=== PATIENT | male | born 1980 | race Caucasian/White ===

== ENCOUNTER 2017-09-14 17:03 | Emergency (ER) | payer BC ==
--- NOTE | 2017-09-14 18:50 | EDM.PDOC ---
ED HPI GENERAL MEDICAL PROBLEM - General Chief Complaint: Lower Extremity Injury/Pain Stated Complaint: PAIN RT ANKLE Time Seen by Provider: 09/14/17 17:04 Source of Information: Reports: Patient History Limitations: Reports: No Limitations - History of Present Illness INITIAL COMMENTS - FREE TEXT/NARRATIVE: History of present illness: []Patient rolled his ankle yesterday on an uneven surface. Pain has not improved today and swelling has worsened. He denies any other injuries at this time. Review of systems: As per history of present illness and below otherwise all systems reviewed and negative. Past medical history: As per history of present illness and as reviewed below otherwise noncontributory. Surgical history: As per history of present illness and as reviewed below otherwise noncontributory. Social history: No reported history of drug or alcohol abuse. Family history: As per history of present illness and as reviewed below otherwise noncontributory. Physical exam: General: Well developed, well nourished in NAD HEENT: Atraumatic, normocephalic, pupils reactive, negative for conjunctival pallor or scleral icterus, mucous membranes moist, throat clear, neck supple, nontender, trachea midline. Lungs: Clear to auscultation, breath sounds equal bilaterally, chest nontender. Heart: S1S2, regular, negative for clicks, rubs, or JVD. Abdomen: Soft, nondistended, nontender. Negative for masses or hepatosplenomegaly. Negative for costovertebral tenderness. Pelvis: Stable nontender. Genitourinary: Deferred. Rectal: Deferred. Extremities: Right ankle diffusely swollen with tenderness over the lateral malleolus and anterior ankle. Distal pulses are palpable moves toes sensation intact, negative for cords or calf pain. Neurovascular unremarkable. Neuro: Awake, alert, oriented. Cranial nerves II through XII unremarkable. Cerebellum unremarkable. Motor and sensory unremarkable throughout. Exam nonfocal. Diagnostics: []Shows no acute fracture there is the tip of the medial malleolus ossicle noted Therapeutics: []Ankle stirrup patient declined a medications Impression: []Right ankle sprain Plan: []Splint, Ice, elevation above the level her heart ibuprofen for pain follow-up with PMD as needed Definitive disposition and diagnosis as appropriate pending reevaluation and review of above. Right Ankle Pain Score (Numeric/FACES): 7 - Related Data Allergies Allergy/AdvReac Type Severity Reaction Status Date / Time No Known Allergies Allergy Verified 09/14/17 17:14 Home Meds: Home Meds . [No Known Home Meds] 09/14/17 [History] Past Medical History - Past Health History Medical/Surgical History: Denies Medical/Surgical History - Infectious Disease History Infectious Disease History: Reports: None Social & Family History - Family History Family Medical History: Noncontributory - Tobacco Use Years of Tobacco use: 25 - Caffeine Use Caffeine Use: Reports: Soda, Tea - Recreational Drug Use Recreational Drug Use: No Review of Systems - Review of Systems Review Of Systems: ROS reveals no pertinent complaints other than HPI. ED EXAM, GENERAL - Physical Exam Exam: See Below (See history of present illness) Course - Vital Signs Last Recorded V/S: Last Vital Signs Temp 98.1 F 09/14/17 17:15 Pulse 89 09/14/17 17:15 Resp 16 09/14/17 17:15 BP 150/87 H 09/14/17 17:15 Pulse Ox 96 09/14/17 17:15 - Orders/Labs/Meds Orders: Active Orders 24 hr Category Date Time Status Splinting [RC] ASDIRECTED Care 09/14/17 18:46 Ordered Ankle Min 3V Rt [CR] Stat Exams 09/14/17 17:27 Taken Departure - Departure Time of Disposition: 18:49 Disposition: Home, Self-Care 01 Condition: Good Clinical Impression: Right ankle sprain Qualifiers: Encounter type: initial encounter - Discharge Information *PRESCRIPTION DRUG MONITORING PROGRAM REVIEWED*: Not Applicable Referrals: PCP,None [Primary Care Provider] - Additional Instructions: The following information is given to patients seen in the emergency department who are being discharged to home. This information is to outline your options for follow-up care. We provide all patients seen in our emergency department with a follow-up referral. The need for follow-up, as well as the timing and circumstances, are variable depending upon the specifics of your emergency department visit. If you don't have a primary care physician on staff, we will provide you with a referral. We always advise you to contact your personal physician following an emergency department visit to inform them of the circumstance of the visit and for follow-up with them and/or the need for any referrals to a consulting specialist. The emergency department will also refer you to a specialist when appropriate. This referral assures that you have the opportunity for follow-up care with a specialist. All of these measure are taken in an effort to provide you with optimal care, which includes your follow-up. Under all circumstances we always encourage you to contact your private physician who remains a resource for coordinating your care. When calling for follow-up care, please make the office aware that this follow-up is from your recent emergency room visit. If for any reason you are refused follow-up, please contact the [facility] Emergency Department at and asked to speak to the emergency department charge nurse. [facility] [address] [place] [address] - My Orders Last 24 Hours: My Active Orders 09/14/17 17:27 Ankle Min 3V Rt [CR] Stat 09/14/17 18:46 Splinting [RC] ASDIRECTED - Assessment/Plan Last 24 Hours: My Active Orders 09/14/17 17:27 Ankle Min 3V Rt [CR] Stat 09/14/17 18:46 Splinting [RC] ASDIRECTED
--- NOTE | 2017-09-17 08:56 | CR ---
EXAM DATE: 09/14/17 PATIENT'S AGE: 37 Patient: MIGUELITO GRANT Facility: [place], [place] Site . Site : 1980 Study: XRay Extremity Right ankle [id number]/20/2018 5:51:10 PM Ordering Physician: Manish Hurst Final Report: INDICATION: fall, tripped and fell after stepping on a toy FINDINGS: Three views of the right ankle show no evidence of acute fracture or dislocation. Small ossicle off the distal tip of the medial malleolus. Soft tissue swelling over the lateral malleolus. No other bony or soft tissue abnormalities identified. Dictated by Regan Bhatia MD @ 09/14/2017 6:41:05 PM Dictated by: Regan Bhatia MD @ 09/14/2017 18:41:12 (Electronic Signature) Report Signed by Proxy. BRIGIDO
== END 2017-09-14 19:30 | disposition home or self-care (01) ==
LOC: MW.ED 17:03
DX: S93.401A Sprain of unspecified ligament of right ankle, initial encounter (principal); X50.9XXA Other and unspecified overexertion or strenuous movements or postures, initial encounter
CPT/HCPCS: 73610-26-RT; 73610-RT; 99283

== ENCOUNTER 2017-11-17 11:15 | Emergency (ER) | payer BC ==
--- NOTE | 2017-11-17 11:27 | EDM.PDOC ---
ED HPI GENERAL MEDICAL PROBLEM - General Chief Complaint: Upper Extremity Injury/Pain Stated Complaint: SHOULDER PAIN Time Seen by Provider: 11/17/17 11:17 Source of Information: Reports: Patient History Limitations: Reports: No Limitations - History of Present Illness INITIAL COMMENTS - FREE TEXT/NARRATIVE: HISTORY AND PHYSICAL: History of present illness: Patient is a 37-year-old male who presents to the emergency room with complaints of left elbow pain. He states he was wrestling and was placed in a "arm are also which overextended the left elbow. He states that since that time he has had pain with flexion and extension and grasping using the left hand. He states the pain does radiate up into the left elbow movements and use the left hand. Denies any numbness or tingling to the affected extremity. Does not have any shoulder, wrist or hand involvement. Review of systems: As per history of present illness and below otherwise all systems reviewed and negative. Past medical history: As per history of present illness and as reviewed below otherwise noncontributory. Surgical history: As per history of present illness and as reviewed below otherwise noncontributory. Social history: No reported history of drug or alcohol abuse. Family history: As per history of present illness and as reviewed below otherwise noncontributory. Physical exam: General: Well-developed and well-nourished 37-year-old male. Alert and oriented. Nontoxic appearing and in no acute distress. HEENT: Atraumatic, normocephalic, pupils equal and reactive bilaterally, negative for conjunctival pallor or scleral icterus, mucous membranes moist, throat clear, neck supple, nontender, trachea midline. No drooling or trismus noted. No meningeal signs Lungs: Clear to auscultation, breath sounds equal bilaterally, chest nontender. Heart: S1S2, regular rate and rhythm without overt murmur Abdomen: Soft, nondistended, obese, nontender. Negative for masses or hepatosplenomegaly. Negative for costovertebral tenderness. Pelvis: Stable nontender. Genitourinary: Deferred. Rectal: Deferred. Skin: Intact, warm, dry. No lesions or rashes noted. Extremities: Pain with flexion and extension of the elbow. He does pain with palpation over the lateral left elbow. Strong radial pulse. Capillary refill less than 3 seconds. No pain with palpation or movement of any of the other joints or extremities. negative for cords or calf pain. Neurovascular unremarkable. Neuro: Awake, alert, oriented. Cranial nerves II through XII unremarkable. Cerebellum unremarkable. Motor and sensory unremarkable throughout. Exam nonfocal. Notes: We discussed the limitations of x-ray. Due to the injury over extension I did encourage him to use the sling and supportive care measures. He will likely need to follow up with the orthopedic provider if this continues to be painful. He voices understanding and is agreeable to plan of care. Denies any further questions or concerns at this time. Diagnostics: X-ray left elbow Therapeutics: Sling Prescription: Tramadol (#15) Medrol Dose [place] Impression: Hyperextension injury, left elbow Plan: 1. Rest, ice, and elevate the affected extremity. Wear the sling for comfort. 2. Tylenol and/or ibuprofen as needed. Tramadol for moderate to severe pain. This medication may cause sedation, do not take while driving or while at work. 3. Please follow up with the Orthopedic provider next week as we discussed. Return to the ED as needed and as discussed. Definitive disposition and diagnosis as appropriate pending reevaluation and review of above. Left Arm Pain Score (Numeric/FACES): 8 - Related Data Allergies Allergy/AdvReac Type Severity Reaction Status Date / Time No Known Allergies Allergy Verified 11/17/17 11:29 Home Meds: Home Meds methylPREDNISolone [Medrol] 4 mg PO DAILY #1 dospk 11/17/17 [Rx] traMADol HCl [Tramadol HCl] 50 mg PO Q6H PRN #15 tablet 11/17/17 [Rx] Past Medical History - Past Health History Medical/Surgical History: Denies Medical/Surgical History - Infectious Disease History Infectious Disease History: Reports: None Social & Family History - Family History Family Medical History: Noncontributory - Caffeine Use Caffeine Use: Reports: Soda, Tea Review of Systems - Review of Systems Review Of Systems: ROS reveals no pertinent complaints other than HPI. ED EXAM, GENERAL - Physical Exam Exam: See Below (See dictation) Course - Vital Signs Last Recorded V/S: Last Vital Signs Temp 97.5 F 11/17/17 11:29 Pulse 90 11/17/17 11:29 Resp 16 11/17/17 11:29 BP 132/75 11/17/17 11:29 Pulse Ox 95 11/17/17 11:29 - Orders/Labs/Meds Orders: Active Orders 24 hr Category Date Time Status Elbow Min 3V Lt [CR] Stat Exams 11/17/17 11:30 Taken DME for Discharge [COMM] Stat Oth 11/17/17 11:30 Ordered Departure - Departure Time of Disposition: 12:30 Disposition: Home, Self-Care 01 Clinical Impression: Hyperextension injury of elbow Qualifiers: Encounter type: initial encounter Laterality: left Qualified Code(s): S59.802A - Other specified injuries of left elbow, initial encounter - Discharge Information Prescriptions: methylPREDNISolone [Medrol] 4 mg PO DAILY #1 dospk traMADol HCl [Tramadol HCl] 50 mg PO Q6H PRN #15 tablet PRN Reason: Pain Referrals: PCP,None [Primary Care Provider] - Forms: ED Department Discharge Additional Instructions: The following information is given to patients seen in the emergency department who are being discharged to home. This information is to outline your options for follow-up care. We provide all patients seen in our emergency department with a follow-up referral. The need for follow-up, as well as the timing and circumstances, are variable depending upon the specifics of your emergency department visit. If you don't have a primary care physician on staff, we will provide you with a referral. We always advise you to contact your personal physician following an emergency department visit to inform them of the circumstance of the visit and for follow-up with them and/or the need for any referrals to a consulting specialist. The emergency department will also refer you to a specialist when appropriate. This referral assures that you have the opportunity for follow-up care with a specialist. All of these measure are taken in an effort to provide you with optimal care, which includes your follow-up. Under all circumstances we always encourage you to contact your private physician who remains a resource for coordinating your care. When calling for follow-up care, please make the office aware that this follow-up is from your recent emergency room visit. If for any reason you are refused follow-up, please contact the Emergency Department at and asked to speak to the emergency department charge nurse. Primary Care [address] [place] [id number] [facility] [address], [address] [place] [address] 1. Rest, ice, and elevate the affected extremity. Wear the sling for comfort. 2. Tylenol and/or ibuprofen as needed. Tramadol for moderate to severe pain. This medication may cause sedation, do not take while driving or while at work. 3. Please follow up with the Orthopedic provider next week as we discussed. Return to the ED as needed and as discussed. - My Orders Last 24 Hours: My Active Orders 11/17/17 11:30 Elbow Min 3V Lt [CR] Stat DME for Discharge [COMM] Stat - Assessment/Plan Last 24 Hours: My Active Orders 11/17/17 11:30 Elbow Min 3V Lt [CR] Stat DME for Discharge [COMM] Stat
[2017-11-17] MEDS ORDERED: traMADol 50 MG Tab PO ONE (12:36)
--- NOTE | 2017-11-19 14:12 | CR ---
EXAM DATE: 11/17/17 PATIENT'S AGE: 37 Patient: MIGUELITO GRANT Facility: [place], [place] Site . Site : 1980 Study: XRay Extremity Left elbow [id number]/22/2018 12:00:08 PM Ordering Physician: Doctor Roth Final Report: INDICATION: over extension injury COMPARISON: None. FINDINGS: Three views of the left elbow demonstrate normal osseous mineralization and alignment. There is no evidence of acute fracture or dislocation. Joint spaces are preserved. No elbow joint effusion. IMPRESSION: No acute osseous abnormality. Dictated by Hugo Cook MD @ 11/17/2017 12:42:31 PM Dictated by: Hugo Cook MD @ 11/17/2017 12:42:38 (Electronic Signature) Report Signed by Proxy. BRIGIDO
== END 2017-11-17 13:05 | disposition home or self-care (01) ==
LOC: MW.ED 11:15
DX: S59.902A Unspecified injury of left elbow, initial encounter (principal); Z79.899 Other long term (current) drug therapy; X50.9XXA Other and unspecified overexertion or strenuous movements or postures, initial encounter; Y93.72 Activity, wrestling
CPT/HCPCS: 73080-26-LT; 73080-LT; 99283